=== PATIENT | female | born 1995 | race Caucasian/White ===

== ENCOUNTER 2019-02-19 10:49 | Outpatient (REF) | payer BC, SELFPAY ==
[2019-02-19 19:43] LABS: Calculated LDL 156 mg/dL; Cholesterol 243 mg/dL (<200); HDL Cholesterol 59 mg/dL (40-60); Triglyceride 144 mg/dL (<150)
== END 2019-02-19 11:09 ==
LOC: NCHCN 10:49
PROVIDERS: PCP Nurse Practitioner Family; Visit Provider Nurse Practitioner Family
DX: R89.9 Unspecified abnormal finding in specimens from other organs, systems and tissues (principal)
CPT/HCPCS: 80061